=== PATIENT | female | born 1955 | race Caucasian/White ===

== ENCOUNTER 2016-10-03 10:22 | Day surgery (SDC) | payer OTHER, MEDICARE ==
[~2016-10-03] VITALS: Ht 162.6 cm; Wt 87.7 kg
[~2016-10-03 10:22] MED LIST: ALEN70 PO; AMLO10 PO; ASPI81 PO; CALTTAB5 PO; HYDR200T42 PO; METH2.5 PO; PRED10 PO; PREV30CA36 PO; PRIN20TA2 PO; SYNT25TA PO
[2016-10-03 10:45] VITALS: BP 152/83; PULSE 98; RESP 18; TEMP 99.5; O2SAT 98
[2016-10-03] MEDS ORDERED: METOPROLOL TARTRATE 25 MG TAB PO PRN (11:00)
[2016-10-03] MEDS ORDERED: LACTATED RINGER'S 1000 ML IV PRN (11:00)
[2016-10-03] MEDS ORDERED: CHLORHEXIDINE GLUCONATE 2 % 1 PACK (2 CLOTHS) TOPICAL SCH (11:00)
[2016-10-03] MEDS ORDERED: MUPIROCIN 2% OINT 1 APPLIC/GM SYR NASAL SCH (11:00)
[2016-10-03] MEDS ORDERED: INSULIN HUMAN REGULAR 1,000 UNITS/10 ML VIAL SQ PRN (11:00)
[2016-10-03] MEDS ORDERED: SODIUM CHLORID 0.9% 500 ML IV PRN (11:00)
[2016-10-03] MEDS ORDERED: POVIDONE IODINE 5% (ANTISEPSIS KIT) 4 APPLICATIONS EACH NARE SCH (11:00)
[2016-10-03] MEDS ORDERED: CHLORHEXIDINE GLUCONATE 2 % 1 PACK (2 CLOTHS) TOPICAL PRN (11:00)
[2016-10-03] MEDS ORDERED: NS 1000 ML IV SCH (11:00)
[2016-10-03] MEDS ORDERED: POVIDONE IODINE 5% (ANTISEPSIS KIT) 4 APPLICATIONS EACH NARE PRN (11:00)
[2016-10-03] MEDS ORDERED: VANCOMYCIN 1000 MG/NS 250 ML IV SCH ×2 (11:00)
[2016-10-03] MEDS ORDERED: LEVO25TA4 PO (11:21)
[2016-10-03] MEDS ORDERED: CALCCHW25 CHEW (11:21)
[2016-10-03] MEDS ORDERED: TOFA1TAB PO (11:21)
[2016-10-03] MEDS ORDERED: FERR325T8 PO (11:21)
[2016-10-03] MEDS ORDERED: CARV12.52 PO (11:21)
[2016-10-03] MEDS ORDERED: FURO20TA PO (11:21)
[2016-10-03] MEDS ORDERED: LISI-515 PO (11:21)
[2016-10-03] MEDS ORDERED: CHOL1CAP13 PO (11:21)
[2016-10-03] MEDS ORDERED: HYDR25TA5 PO (11:21)
[2016-10-03 11:37] LABS: AUTOMATED NEUTROPHIL # 3.6 TH/MM3 (1.8-7.7); BASOPHIL % 0.5 % (0.0-2.0); EOSINOPHIL # 0.1 TH/MM3 (0-0.4); EOSINOPHIL % 2.7 % (0.0-4.0); HEMATOCRIT 37.6 % (35.0-46.0); HEMO FLAGS DIFF FINAL; LYMPH % 19.3 % (9.0-44.0); MEAN CELL VOLUME 89.8 FL (80.0-100.0); MEAN CORPUSCULAR HEMOGLOBIN 30.8 PG (27.0-34.0); MEAN CORPUSCULAR HGB CONC 34.3 % (32.0-36.0); NEUT % 69.5 % (16.0-70.0); PLATELET COUNT 206 TH/MM3 (150-450); RED BLOOD COUNT 4.19 MIL/MM3 (4.00-5.30); RED CELL DISTRIBUTION WIDTH 12.9 % (11.6-17.2); WHITE BLOOD COUNT 5.2 TH/MM3 (4.0-11.0)
[2016-10-03 11:46] LABS: APTT (PATIENT) 25.2 SEC (24.3-30.1); INTERNATIONAL NORMALIZED RATIO 0.9 RATIO; PROTHROMBIN TIME - PATIENT 10.3 SEC (9.8-11.6)
[2016-10-03 11:58] LABS: BICARBONATE 26.4 MEQ/L (21.0-32.0); POTASSIUM 4.5 MEQ/L (3.5-5.1)
[2016-10-03] MEDS ORDERED: PROPOFOL 200 MG/20 ML AMP IV ONE (12:50)
[2016-10-03] MEDS ORDERED: LEVOFLOXACIN 500 MG PREMIX INJ 100 ML IV ONE (13:13)
[2016-10-03] MEDS ORDERED: LIDOCAINE HCL 2% 50 ML VIAL ONE (13:13)
[2016-10-03] MEDS ORDERED: VANCOMYCIN 500 MG VIAL ONE (13:13)
[2016-10-03] MEDS ORDERED: MIDAZOLAM HCL 2 MG/2 ML VIAL ONE (13:34)
--- NOTE | 2016-10-03 13:34 | EKG ---
Date Performed: 10/03/2016 Time Performed: 11:32:02 PTAGE: 61 years EKG: Sinus rhythm with PAC(s). Borderline ECG Compared to the PREVIOUS TRACING PVCs no longer present. PREVIOUS TRACIN12/09/2008 06.23 DOCTOR: Rolf Sharma Interpretating Date/Time 10/03/2016 13:32:10
--- NOTE | 2016-10-03 15:57 | CATHPROC ---
[facility] HIS Report Study Information Study Number Scheduled Start Study Start [id number] 10/03/2016 Oct 03 2016 12:13PM Referring Institution Admit Source Facility Department [address] [facility] - Meter Reader Chief Physician and Clinical Staff Initial Tawny Grewal [employer]ee Developer Kurtis Mccrary RCIS(BS) Other Anesthesia, HAZMAT CDL A DRIVER Recorder Carmita Garcia,MAYA Scrub Bee Dickens,RT(R) TECH2 Procedures Performed Procedure Lead Insertion Equipment Time Chinchilla Machine Operator Description Size Mfg Part Number Used/Scraped 12:59 [employer] DRAPE, [place] X-RAY 12X17 12X17 D-100 *[id number] Used MPIS-502-10.0- INTRODUCER SET, 12:59 [employer] FR 5 SC-NT-U-SST Used MICROPUNCTURE, STIFFENED *[id number] MPIS-502-10.0- INTRODUCER SET, 12:59 [employer]. FR 5 SC-NT-U-SST Used MICROPUNCTURE, STIFFENED *[id number] MPIS-502-10.0- INTRODUCER SET, 15:15 [employer] FR 5 SC-NT-U-SST Used MICROPUNCTURE, STIFFENED *[id number] 12:59 [employer]im DRAPE, IOBAN 2 [id number] 26cm x 20cm Used *[id number] TP-1103 12:59 [employer] SUTURE, STRIP PLUS 1/2" * Used *[id number] 12:59 MEDLINE PACER ADHESIVE, MASTISOL 2/3CC 2/3CC 0523-48 Used 12:59 MEDLINE PACER HIRSCH, LIMB * 2530 *[id number] Used [id number] 12:59 MEDLINE PACER PACK, PACER CUSTOM * Used *[id number] 12:59 MEDLINE PACER PEN, SKIN DUAL W/ RULER * Used *[id number] 15:13 [employer] PACER SAFE SHEATH, FR7, 13CM FR 7 [id number] Used PROBE COVER, STERILE [id number] 12:59 [place] * Used ULTRASOUND W/ GEL *[id number] 13:23 Needle Sponge Count 1 1 Used 13:23 Needle Sponge Count 2 22 Used 13:23 Needle Sponge Count 25 1 Used 15:16 Needle Sponge Count 3 3 Used [id number] *[id number] SUTURE, 0 ETHIBOND [CT1] (CX21D), 8pk SUTURE, 2-0 VICRYL [CT1] (LIF129R) SUTURE, 2-0 VICRYL [CT1] ([id number]) SUTURE, 4-0 VICRYL [PS2] (AUO805U) [id number] 12:59 [place] [employer],WARM AIR CCL * Used *[id number] LEAD, TENDRIL SDX 1688TC 1688TC/46CM 15:24 [employer] 46CM Used 46CM *[id number] 13:49 [employer] PACEMAKER, ASSURITY DR DIAL DDDR [id number] Used [place] PAD, ELECTROSURGICAL 12:59 * [id number] *[id number] Used SURGICAL GROUNDING ORANGE 13:00 [employer] PLASMABLADE, PEAD 3.0S * [id number] Used [id number] 12:59 J [employer] CLARIBEL. ELECTRODE, PRO-PADZ BIPHASIC * Used *85039 Equipment Model, Serial, Lot Number and Expiration Data Description Model Number Serial Number Lot Number Expiration Date INTRODUCER SET, [id number] 09-02-2019 MICROPUNCTURE, STIFFENED LEAD, TENDRIL SDX 1688TC 46CM 1688TC [id number] 07-19-2017 PACEMAKER, ASSURITY DR DIAL [id number] 02-18-2018 History: Allergies Allergy Reaction codeine Penicillin penicillin G History: Risk Factors Hypertension Yes Labs Hgb (g/dl) Hct (%) RBC (MIL/MM3) WBC (l/cumm) Platelets (thousands) 11.60-17.00 35.00-51.00 4.00-5.90 4.00-11.00 150.00-450.00 12.0 37 4.1 5.2 206 Glucose (mg/dl) BUN (mg/dl) Creatinine (mg/dl) BUN:Creatinine (1:x) 74.00-106.00 7.00-18.00 0.50-1.30 10.00-20.00 94 34 1.3 26.2 Na (meq/l) K (meq/l) 136.00-145.00 3.50-5.10 140 4.5 INR (PTT:PT) 0.90-1.10 0.9 Medication Medication Total Dose (Bolus/Oral) Medication Total Dosage/Unit 2% XYLOCAINE 50 mL Medications (Bolus/Oral) Medication Time Given Dosage/Unit Administered By Reason 2% XYLOCAINE 10/03/2016 1:45:55 PM 50 mL Tawny Sandoval 50 mL 2% XYLOCAINE given in lab by Tawny Sandoval in Left upper chest via Subcutaneous. Ordered by Tawny Anand. Medication (Drip) Medication Time Given Dosage/Unit Concentration/Unit Diluent (ml) Solution LEVAQUIN 10/03/2016 1:30:38 PM 100 mL/hr 500 100 NaCl .9 100 mL/hr LEVAQUIN given in lab by Carmita Garcia RN via Peripheral IV. Pump/Drip Flow = 0 ml/hr u sing NaCl .9 with a concentration of 500 in 100 ml. Ordered by Tawny Sandoval. Reason: As per physicians verbal order. VANCOMYCIN DRIP 10/03/2016 1:08:00 PM 1 g 1 g VANCOMYCIN DRIP given in lab by Carmita Garcia RN via Peripheral IV. Ordered by Dhiraj Sandoval Reason: As per physicians verbal order. Initial Case Assessment Initial Case Assessment Cardiovascular HR Rhythm NIBP Chest Pain 93 sr 159/73 0 Edema Present Skin color Skin None Normal Warm Dry Circulatory - Right Pulses Radial 2 Scale (0,1,2,3,4,d) Circulatory - Left Pulses Radial 2 Scale (0,1,2,3,4,d) Circulatory - Lower Extremities Color Lower Right Color Lower Left Normal Normal Neurological State Oriented to time-place- Alert Moves all extremities person Respiration - General Respiration Rate SpO2 (%) (B/min) 20 100 Final Case Assessment Cardiovascular HR Rhythm NIBP Chest Pain 101 st 101/54 0 Edema Present Skin color Skin None Normal Warm Dry Circulatory - Right Pulses Radial 2 Scale (0,1,2,3,4,d) Circulatory - Left Pulses Radial 2 Scale (0,1,2,3,4,d) Circulatory - Lower Extremities Color Lower Right Color Lower Left Normal Normal Neurological State Oriented to time-place- Alert Moves all extremities person Respiration - General Respiration Rate SpO2 (%) O2 (lpm) (B/min) 16 100 6 Chronological Log Time Study Chronological Log 12:50:45 Patient arrived via Bed. 12:57:53 Patient Name, D.O.B, / Armband Verified By R.N. 12:57:55 Consent signed by the physician and the patient and verified by the Meter Reader Chief staff. 12:57:56 Pre-op and post- op instructions given; patient acknowledges understanding of instructions. 12:58:44 Presedation assessment performed by Meter Reader Chief RN. 12:58:45 Patient has been NPO for More than 6Hrs. 12:58:45 Skin Breakdown-none per patient 12:58:46 Patient Warmer Placed on the Table. 12:58:47 Disposable Defibrillator Pads Placed On Patient. 12:59:06 A # 20 IV was noted in the Antecubital (left). Grade = 0 0.9ns kvo 12:59:08 A # 20 IV was noted in the Antecubital (right). Grade = 0 0.9ns kvo 12:59:10 Verbal Stimulation=2 Physical Stimulation=2 Airway=2 Respiration=2 TOTAL=8. (0=absent, 1=li mited, 2=present) 12:59:11 Assessment: Initial Case 12:59:13 Table restraints applied according to hospital policy 13:01:31 Bovie ground pad applied to:right thgigh 13:02:20 [facility] rep present 13:02:46 2% CHLORHEXIDINE GLUCONATE WASH AND NASAL SWIPE DONE PRIOR TO PROCEDURE. 1 g VANCOMYCIN DRIP given in lab by Carmita Garcia, RN via Peripheral IV. Ordered by Tawny Sandoval. Reason: 13:08:00 As per physicians verbal order. 13:17:52 Left Upper Chest Prepped Times Two. 13:20:41 Reference ECG taken Assessment: Initial Case, HR=93 BPM, Rhythm=sr, IHVV=683/73 mmhg, Chest Pain=0, Edema=None, Col or=Normal, Skin = Warm, Dry Right Pulses: Radial=2 Left Pulses: Radial=2 13:20:44 Lower Right Extremities: Color=Normal Lower Left Extremities: Color=Normal Neurological: State=Alert, Ox3, HUFF Respiration: Resp=20 B/min, PdH5=842 % First Sponge And Instrument Count Done by Bee Dickens, RT(R) TECH2. 13:23:07 Hypo's: 3, Sponges: 25, Bovie/scratch: 2 Sutures: 11, Blades: 2, Instruments: 26, Syveck Patches: ~SYVECK PATCH~ SPONGES 35 TOTAL. Verif ied with KF. 100 mL/hr LEVAQUIN given in lab by Carmita Gracia, MAYA via Peripheral IV. Pump/Drip Flow = 0 m l/hr using NaCl .9 13:30:38 with a concentration of 500 in 100 ml. Ordered by Tawny Sandoval. Reason: As per physicians ve rbal order. 13:33:22 MD arrived. 13:35:00 Anesthesia at bedside. Assumes care of patient. Andrea Conde Time Out. Correct patient, procedure, procedure equipment, site and side verified with physicia n present. Time 13:45:00 concurred by MD, individual staff and HAZMAT CDL A DRIVER. Time Out #2 - Consents verified, patient in correct position, all results are labled and displa yed, safety precautions 13:45:26 taken, antibiotics administered. Time out concurred by MD, individual staff and HAZMAT CDL A DRIVER in procedu re 13:45:37 Case Start 50 mL 2% XYLOCAINE given in lab by Tawny Sandoval in Left upper chest via Subcutaneous. Ordere d by Jaime, 13:45:55 Tawny. 13:47:57 Surgical Incision Made. 13:48:07 A pocket was created at the L Upper Chest. 13:49:43 One antibiotic sponge put into the surgical pocket. 13:52:34 Unable to loosen atrial lead screw. Additional sterile equipment being brought in for use. 15:18:40 A device was explanted. 15:18:46 The RA lead was capped. 15:20:14 Vascular access was obtained in the Subclav. Vein Lft. 15:21:14 Wire inserted 15:21:51 A SAFE SHEATH, FR7, 13CM FR 7 was advanced into the Subclav. Vein Lft using the Modified Se tejada technique. 15:23:00 A LEAD, TENDRIL SDX 1688TC 46CM 46CM was inserted and positioned in the RA. 15:23:11 Lead placement verified under fluoroscopy 15:23:32 The Atrial lead impedance and threshold is being tested. 15:24:38 The Atrial lead was sutured to the fascia. 15:31:00 Antibiotic sponge removed from the surgical pocket. 15:31:14 A PACEMAKER, ZULEYMA DIAL DDDR was connected and placed in the pocket. 15:32:30 Pocket flushed with antibiotic solution Second Sponge And Instrument Count Done by Bee Dickens, RT(R) TECH2. 15:35:00 Hypo's: 3, Sponges: 25, Bovie/scratch: 2 Sutures: 11, Blades: 2, Instruments: 26, Syveck Patches: ~SYVECK PATCH~ SPONGES 35 TOTAL. Veri fied with KF. 15:40:00 The pocket was closed. 15:40:28 Implant Procedure was performed. 15:44:47 DOCU called. Spoke to Thea Cabral. 15:44:50 Bedside Report will be given. 15:47:33 No case complications noted. 15:47:34 Cine recording checked. 15:47:51 Implantable Device card placed in patient's chart. Assessment: Final Case, GA=799 BPM, Rhythm=st, NBCN=817/54 mmhg, Chest Pain=0, Edema=None, Col or=Normal, Skin = Warm, Dry Right Pulses: Radial=2 Left Pulses: Radial=2 15:56:34 Lower Right Extremities: Color=Normal Lower Left Extremities: Color=Normal Neurological: State=Alert, Ox3, HUFF Respiration: Resp=16 B/min, EwK5=606 %, O2=6 lpm 16:00:11 Case End 16:01:24 Steri-strips and a sterile dressing applied to site. Final Sponge And Instrument Count Done by Bee Dickens, RT(R) TECH2. 16:02:55 Hypo's: 3, Sponges: 25, Bovie/scratch: 2 Sutures: 11, Blades: 2, Instruments: 26, Syveck Patches: ~SYVECK PATCH~ SPONGES 35 TOTAL. Veri fied with KF. 16:03:13 Patient moved to stretcher 16:03:30 Defibrillator and ground pads removed. Skin intact. 16:03:32 A sling was placed on the affected arm. End Study - Contrast Media Used In Study Contrast Total Opened (mL) Total Used (mL) Total Wasted (mL) Unspecified 0 0 0 End Study - Maximum Contrast Load Max Contrast Load (mL) 337.2 End Study - Radiation Exposure Fluoro Time (minutes) 1.5 End Study - Patient Disposition Complications Transferred To Interventional Outcome No Telemetry Bed successful
[2016-10-03] MEDS ORDERED: DO NOT ADM ANY ANTICOAGULANT DRUGS PRN (16:00)
--- NOTE | 2016-10-03 16:51 | RADRPT ---
EXAM DATE/TIME: 10/03/2016 16:16 [place] COMPARISON: CHEST PA & LAT, December 09, 2008, 11:39. INDICATIONS : Evaluate for pneumothorax. Post op pacemaker. MEDICAL HISTORY : None. SURGICAL HISTORY : None. ENCOUNTER: Initial ACUITY: 1 day PAIN SCORE: 2/10 LOCATION: Bilateral chest FINDINGS: The heart is normal in size. There chronic interstitial changes within the pulmonary parenchyma. Exam would suggest COPD. The pacer is in good position. CONCLUSION: 1. COPD changes. Carlos Corbett MD on October 03, 2016 at 16:49 Board Certified Radiologist. This report was verified electronically.
--- NOTE | 2016-10-04 07:53 | MP ---
cc: DANY MOONEY DATE OF SURGERY: 10/03/2016 INDICATION End-of-life of [employer] dual-chamber pacemaker. PROCEDURE PERFORMED 1. Explantation of [facility] [place] dual-chamber pacemaker. 2. Placement of a new [employer] [place] dual-chamber pacemaker. 3. Placement of a new atrial lead. ACCESS SITE Left subclavian vein. EQUIPMENT USED Generator: [employer] model [id number] dual-chamber pacemaker number, serial number [id number]. Right atrial lead: [employer] model 1688TC-46 cm screw-in atrial lead, serial number [id number]. Right ventricle lead (preserved): [employer] model 1646P/58 ventricle lead, serial number [id number], placed 12/08/2008. The old atrial lead could not be freed from the old device due to set screw malfunction. An extensive effort including orthopedic drills and other orthopedic equipment did not result in successful removal of the lead. The lead was therefore capped and a new right atrial lead was placed. LEAD TESTING Right atrial lead: P-wave 2.9 millivolts, lead impedance 490 ohms, pacing threshold 1.25 volts at 0.5 milliseconds. Pacing at 10 volts. No diaphragmatic stimulation. Right ventricular lead: R-wave 2.7 millivolts, lead impedance 530 ohms, pacing threshold 0.5 volts at 0.5 milliseconds. PARAMETERS Mode DDD, low rate 60, upper rate 130. COMPLICATIONS None. ESTIMATED BLOOD LOSS Less than 10 cc. DIAGNOSIS Successful replacement of end-of-life dual-chamber pacemaker with the placement of a new atrial lead. DISPOSITION Mr. Mcclellan will be monitored after her procedure. The patient will be discharged home later today. I will see her back for a wound check in the office within 2 weeks. MD DENNY Amaya/DANIA /3:39 PM /7:37 AM MTDD
== END 2016-10-03 19:20 | disposition home or self-care (01) ==
LOC: HCAT 10:22 → HDIC 10:23 → HCAT 19:20
PROVIDERS: ATTEND Internal Medicine Interventional Cardiology
DX: Z45.010 Encounter for checking and testing of cardiac pacemaker pulse generator [battery] (principal); I47.1 Supraventricular tachycardia; I20.9 Angina pectoris, unspecified; I34.0 Nonrheumatic mitral (valve) insufficiency; R00.2 Palpitations; I12.9 Hypertensive chronic kidney disease with stage 1 through stage 4 chronic kidney disease, or unspecified chronic kidney disease; N18.9 Chronic kidney disease, unspecified; R06.09 Other forms of dyspnea
CPT/HCPCS: 00530; 33228; 71010; 80048; 85025; 85610; 85730; 93005; C1785; C1898; J1956; J2250; J3010; J3370; J7050; 33217